=== PATIENT | male | born 1970 | race Caucasian/White ===

== ENCOUNTER 2019-07-18 20:11 | Emergency (ER) | payer MEDICAID, OTHER ==
[~2019-07-18] VITALS: Ht 175.3 cm; Wt 86.2 kg
--- NOTE | 2019-07-18 20:41 | NUR ---
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
--- NOTE | 2019-07-18 21:12 | NUR ---
AT BEDSIDE FOR EVAL.
[2019-07-18] MEDS ORDERED: CEPHALEXIN MONOHYDRATE 500 MG CAPSULE PO ONE ×2 (21:25→21:30)
[2019-07-18] MEDS ORDERED: CHLORDIAZEPOXIDE HCL 25 MG CAPSULE ONE (21:25)
[2019-07-18] MEDS ORDERED: CHLORDIAZEPOXIDE HCL 25 MG CAPSULE PO ONE (21:30)
--- NOTE | 2019-07-18 21:39 | NUR ---
PT REFUSED BLOOD WORK, AWARE.
[2019-07-18 23:15] VITALS: BP 129/82
--- NOTE | 2019-07-18 23:15 | NUR ---
Patient discharged to home in stable condition. Written and verbal after care instructions given. Patient verbalizes understanding of instruction.
== END 2019-07-18 23:16 | disposition home or self-care (01) ==
LOC: ER 20:15
DX: L03.113 Cellulitis of right upper limb (principal); F10.10 Alcohol abuse, uncomplicated; I10 Essential (primary) hypertension; R00.0 Tachycardia, unspecified; Y90.9 Presence of alcohol in blood, level not specified; Z86.19 Personal history of other infectious and parasitic diseases

== ENCOUNTER 2020-02-27 17:00 | Emergency (ER) | payer OTHER ==
[~2020-02-27] VITALS: Ht 175.3 cm; Wt 95.3 kg
[2020-02-27] MEDS ORDERED: ONDANSETRON HCL/PF 4 MG/2 ML VIAL ONE (17:21)
[2020-02-27 17:24] LABS: BASOPHILS # (AUTO) 0.1 /CMM (0.0-0.2); BASOPHILS % (AUTO) 1.4 % (0.0-2.0); EOSINOPHILS % (AUTO) 4.5 % (0.0-6.0); HEMATOCRIT 45 % (39-51); HEMOGLOBIN 15.1 g/dL (13.5-17.5); LYMPHOCYTES # (AUTO) 3.1 /CMM (0.8-4.8); MEAN CORPUSCULAR HGB CONC 34 g/dl (31.0-36.0); MEAN CORPUSCULAR VOLUME 92 fL (80-96); MONOCYTES # (AUTO) 0.3 /CMM (0.1-1.30); MONOCYTES % (AUTO) 4.9 % (2.0-12.0); NEUTROPHILS % (AUTO) 44.2 % (43.0-81.0); PLATELET COUNT (AUTO) 174 /CMM (150-450); RED BLOOD CELL COUNT(AUTO) 4.86 MIL/uL (4.5-6.0); WHITE BLOOD COUNT (AUTO) 6.8 K/uL (4.3-11.0)
--- NOTE | 2020-02-27 17:25 | NUR ---
moises80, from street, nausea vomiting, last drink 2hrs ago, admits on smoking weed. PT AAOX3, VSS. RR EVEN & UNLABORED. DENIES CP, SOB, WEAKNESS AT THIS TIME. PT SEEN & EVAL'D BY DR. HERNANDEZ. MEDICATED ORDERED, PT VEE WELL. WILL CONT TO MONITOR.
[2020-02-27 17:30] LABS: CALCIUM, SERUM 7.8 mg/dL (8.5-10.1); CREATININE 1.1 mg/dL (0.6-1.3); POTASSIUM 3.1 mmol/L (3.5-5.1)
[2020-02-27] MEDS ORDERED: IV NS 0.9% 1,000 ML BAG IV ONE (17:30)
[2020-02-27] MEDS ORDERED: ONDANSETRON HCL/PF 4 MG/2 ML VIAL IVP ONE (17:30)
[2020-02-27 17:36] LABS: ALBUMIN 3.7 g/dL (3.4-5.0); BILIRUBIN,DIRECT 0.1 mg/dL (0.0-0.2); BILIRUBIN,TOTAL 0.5 mg/dL (0.2-1.0); SALICYLATE 1.7 mg/dL (2.8-20.0); TOTAL PROTEIN, SERUM 6.5 g/dL (6.4-8.2)
--- NOTE | 2020-02-27 18:25 | NUR ---
Patient is resting comfortably in bed with eyes closed. Easily aroused. VSS
--- NOTE | 2020-02-27 21:48 | NUR ---
Patient is resting comfortably in bed with eyes closed. Easily aroused. VSS
--- NOTE | 2020-02-27 23:28 | NUR ---
Patient discharged to home in stable condition. Written and verbal after care instructions given. Patient verbalizes understanding of instruction. Signed homeless waiver. VSS. Ambulated with steady gait.
--- NOTE | 2020-02-27 23:28 | NUR ---
IV removed. Catheter intact and site benign. Pressure and 4x4 applied to site. No bleeding noted.
[2020-02-27 23:34] VITALS: BP 124/78
== END 2020-02-27 23:34 | disposition home or self-care (01) ==
LOC: ER 17:01
DX: F10.129 Alcohol abuse with intoxication, unspecified (principal); R11.10 Vomiting, unspecified; I10 Essential (primary) hypertension; Y90.8 Blood alcohol level of 240 mg/100 ml or more
CPT/HCPCS: 36415; 80048; 80076; 80307; 80329; 85025; 96361; 96374; 99283; G0480; J2405; J7030

== ENCOUNTER 2020-11-17 01:44 | Emergency (ER) | payer OTHER ==
[~2020-11-17] VITALS: Ht 175.3 cm; Wt 79.4 kg
--- NOTE | 2020-11-17 01:46 | NUR ---
CALLED FOR TRIAGE, NO ANSWER.
--- NOTE | 2020-11-17 01:50 | NUR ---
CALLED FOR TRIAGE, NO ANSWER.
--- NOTE | 2020-11-17 01:59 | NUR ---
CALLED FOR TRIAGE, NO ANSWER.
--- NOTE | 2020-11-17 03:00 | NUR ---
PT CAME BACK AND WANTS TO BE SEEN. PT STATES "I WAS JUST OUTSIDE SMOKING COZ I KNOW YOU GUYS WONT LET ME GO OUT TO SMOKE LATER."
--- NOTE | 2020-11-17 03:05 | NUR ---
URINE SAMPLE COLLECTED AND SENT TO LAB.
--- NOTE | 2020-11-17 03:09 | NUR ---
LIMITED RADIOLOGY TECHNICIAN AT BEDSIDE FOR BLOOD DRAW.
[2020-11-17] MEDS ORDERED: OLANZAPINE 5 MG TABLET ONE (03:24)
[2020-11-17] MEDS ORDERED: CLONIDINE HCL 0.1 MG TABLET ONE (03:24)
[2020-11-17 03:26] LABS: BASOPHILS % (AUTO) 0.5 % (0.0-2.0); EOSINOPHILS % (AUTO) 2.9 % (0.0-6.0); HEMATOCRIT 47 % (39-51); HEMOGLOBIN 16.2 g/dL (13.5-17.5); LYMPHOCYTES # (AUTO) 2.2 /CMM (0.8-4.8); LYMPHOCYTES % (AUTO) 24.6 % (20.0-44.0); MEAN CORPUSCULAR HGB CONC 35 g/dl (31.0-36.0); MEAN CORPUSCULAR VOLUME 93 fL (80-96); MONOCYTES # (AUTO) 0.7 /CMM (0.1-1.30); MONOCYTES % (AUTO) 7.6 % (2.0-12.0); NEUTROPHILS # (AUTO) 5.7 /CMM (1.8-8.9); NEUTROPHILS % (AUTO) 64.4 % (43.0-81.0); PLATELET COUNT (AUTO) 203 /CMM (150-450); RED BLOOD CELL COUNT(AUTO) 5.05 MIL/uL (4.5-6.0); WHITE BLOOD COUNT (AUTO) 8.9 K/uL (4.3-11.0)
[2020-11-17 03:27] LABS: BILIRUBIN,URINE NEGATIVE (NEGATIVE); COLOR,URINE YELLOW (YELLOW); LEUKOCYTE ESTERASE ,URINE NEGATIVE (NEGATIVE); NITRITE, URINE NEGATIVE (NEGATIVE); PROTEIN,URINE NEGATIVE (NEGATIVE); UGLUCOSE NEGATIVE (NEGATIVE); UROBILINOGEN,URINE 0.2 EU/dL (0.2)
[2020-11-17] MEDS ORDERED: CLONIDINE HCL 0.1 MG TABLET PO ONE (03:30)
[2020-11-17] MEDS ORDERED: OLANZAPINE 5 MG TABLET PO ONE (03:30)
[2020-11-17 03:34] LABS: CALCIUM, SERUM 8.9 mg/dL (8.5-10.1); CARBON DIOXIDE 30 mmol/L (21-32); CHLORIDE 100 mmol/L (98-107); CREATININE 0.9 mg/dL (0.6-1.3); GLUCOSE 118 mg/dL (74-106); POTASSIUM 3.8 mmol/L (3.5-5.1); SODIUM SERUM 139 mmol/L (136-145); UREA NITROGEN, BLOOD 10 mg/dL (7-18)
[2020-11-17 03:38] LABS: BACTERIA,URINE None seen /HPF (None Seen); SQUAMOUS EPITHELIAL CELL,UR Few /HPF (None Seen); URINE AMORPHOUS URATE Rare /HPF (None Seen); WBC,URINE 0-2 /HPF (0-3)
[2020-11-17 03:39] LABS: ALANINE AMINOTRANSFERASE 43 U/L (12-78); ALBUMIN 4.1 g/dL (3.4-5.0); ALCOHOL, BLOOD 175 mg/dL (0-0); ALKALINE PHOSPHATASE 90 U/L (46-116); ASPARTATE AMINOTRANSFERASE 50 U/L (15-37); BILIRUBIN,DIRECT 0.1 mg/dL (0.0-0.2); BILIRUBIN,TOTAL 0.6 mg/dL (0.2-1.0); TOTAL PROTEIN, SERUM 7.7 g/dL (6.4-8.2)
[2020-11-17 03:40] LABS: ACETAMINOPHEN < 2 ug/ml (10-30)
--- NOTE | 2020-11-17 05:55 | NUR ---
CLINICAL AND FACESHEET FAXED TO [facility] INTAKE FOR VOLUNTARY PSYCH ADMISSION.
[2020-11-17 06:28] VITALS: BP 154/99
--- NOTE | 2020-11-17 06:54 | NUR ---
TRANSFER INFO: PT ACCEPTED AT [facility] ACCEPTING MD RENO PT WILL GO TO UNIT 2 PHONE NUMBER FOR REPORT . PLEASE CALL REPORT AFTER 0800
--- NOTE | 2020-11-17 07:05 | NUR ---
[id number] CALLED FOR TRANSPORT. RESERVATION #[id number].
--- NOTE | 2020-11-17 07:24 | NUR ---
RECIEVED A CALL BACK FROM CALL THE CAR. ETA 20-30 MINUTES WITH [facility].
--- NOTE | 2020-11-17 07:38 | NUR ---
REPORT GIVEN TO EMT FOR SSUANNAH
== END 2020-11-17 07:58 ==
LOC: ER 01:46
DX: R45.851 Suicidal ideations (principal); I10 Essential (primary) hypertension; Z86.19 Personal history of other infectious and parasitic diseases; Z20.822 Contact with and (suspected) exposure to COVID-19
CPT/HCPCS: 36415; 80048; 80076; 80299; 80307; 80320 ×2; 81001; 85025; 87426; 99285; C9803; G0480

== ENCOUNTER 2020-12-03 23:42 | Emergency (ER) | payer OTHER ==
[~2020-12-03] VITALS: Ht 175.3 cm; Wt 111.1 kg
--- NOTE | 2020-12-03 23:42 | NUR ---
BIBSELF C/O SORE THROAT. ALSO C/O SUICIDAL IDEATION WITH PLAN TO RUN INTO TRAFFIC. REQUESTING VOLUNTARY ADMISSION TO PSYCH FACILITY, PT TO BED 15, SI PRECAUTIONS STARTED, BELONGINGS KEPT FOR SAFETY, SITTER BY BEDSIDE PER PROTOCOL. CALM AND COOPERATIVE AT THIS TIME, NOT IN ANY DISTRESS.
[2020-12-04 01:33] LABS: BASOPHILS # (AUTO) 0.3 /CMM (0.0-0.2); BASOPHILS % (AUTO) 3.3 % (0.0-2.0); EOSINOPHILS % (AUTO) 0.3 % (0.0-6.0); HEMATOCRIT 44 % (39-51); HEMOGLOBIN 15.1 g/dL (13.5-17.5); LYMPHOCYTES # (AUTO) 1.1 /CMM (0.8-4.8); LYMPHOCYTES % (AUTO) 13.9 % (20.0-44.0); MEAN CORPUSCULAR HGB CONC 34 g/dl (31.0-36.0); MEAN CORPUSCULAR VOLUME 94 fL (80-96); MONOCYTES # (AUTO) 0.3 /CMM (0.1-1.30); MONOCYTES % (AUTO) 4.2 % (2.0-12.0); NEUTROPHILS % (AUTO) 78.3 % (43.0-81.0); PLATELET COUNT (AUTO) 194 /CMM (150-450); RED BLOOD CELL COUNT(AUTO) 4.69 MIL/uL (4.5-6.0); WHITE BLOOD COUNT (AUTO) 7.7 K/uL (4.3-11.0)
[2020-12-04 01:42] LABS: CALCIUM, SERUM 8.6 mg/dL (8.5-10.1); CARBON DIOXIDE 28 mmol/L (21-32); CHLORIDE 103 mmol/L (98-107); GLUCOSE 96 mg/dL (74-106); POTASSIUM 3.2 mmol/L (3.5-5.1); SODIUM SERUM 140 mmol/L (136-145); UREA NITROGEN, BLOOD 6 mg/dL (7-18)
[2020-12-04 01:49] LABS: ALANINE AMINOTRANSFERASE 46 U/L (12-78); ALBUMIN 3.7 g/dL (3.4-5.0); ALCOHOL, BLOOD 103 mg/dL (0-0); ALKALINE PHOSPHATASE 114 U/L (46-116); ASPARTATE AMINOTRANSFERASE 48 U/L (15-37); BILIRUBIN,DIRECT 0.1 mg/dL (0.0-0.2); BILIRUBIN,TOTAL 0.4 mg/dL (0.2-1.0)
[2020-12-04 01:57] LABS: ACETAMINOPHEN < 2 ug/ml (10-30)
[2020-12-04 03:51] LABS: BILIRUBIN,URINE NEGATIVE (NEGATIVE); COLOR,URINE YELLOW (YELLOW); LEUKOCYTE ESTERASE ,URINE NEGATIVE (NEGATIVE); NITRITE, URINE NEGATIVE (NEGATIVE); PH,URINE 6.5 (5.0-8.0); PROTEIN,URINE NEGATIVE (NEGATIVE); UGLUCOSE NEGATIVE (NEGATIVE); UROBILINOGEN,URINE 0.2 EU/dL (0.2)
--- NOTE | 2020-12-04 04:30 | NUR ---
Pt sleeping in [place]. No signs of distress noted. Pt vital signs stable. will cont to monitor pt.
--- NOTE | 2020-12-04 06:00 | NUR ---
Call from [facility] intake. No beds at [place]. Attempting for bed at [facility]
--- NOTE | 2020-12-04 07:22 | NUR ---
TRANSFER INFORMATION: PT ACCEPTED TO [facility] ACCEPTING MD: DR. NOLASCO NUMBER FOR REPORT: [phone] EXT [phone] REQUESTING TO SET UP TRANSPORT/REPORT AFTER 829
--- NOTE | 2020-12-04 10:02 | NUR ---
REPORT GIVEN TO YAKOV YANEZ OF [place] FOR SUSANNAH.
--- NOTE | 2020-12-04 10:03 | NUR ---
CALLED [id number] [phone] WILL CALL US WITH AN ETA AND AMBULANCE.
--- NOTE | 2020-12-04 10:05 | NUR ---
REF NUMBER [id number] [facility]
--- NOTE | 2020-12-04 12:03 | NUR ---
CALLED [id number] FOR UPDATE, NO TRANSPORT OF YET BUT WILL CALL US G[place].
--- NOTE | 2020-12-04 12:09 | NUR ---
[id number] CALLED BACK [facility] WITH ETA OF 45 MINS
--- NOTE | 2020-12-04 12:10 | NUR ---
PT PROVIDED W/ MEAL TRAY.
--- NOTE | 2020-12-04 14:30 | NUR ---
[facility] DID NOT TRANSPORT DUE TO PT BEING HYPERTENSIVE.
[2020-12-04] MEDS ORDERED: CLONIDINE HCL 0.1 MG TABLET ONE (14:36)
--- NOTE | 2020-12-04 14:40 | NUR ---
[facility] CALLED ETA 1530 PER JOSE
[2020-12-04] MEDS ORDERED: CLONIDINE HCL 0.1 MG TABLET PO ONE (15:00)
[2020-12-04 15:48] VITALS: BP 157/104
--- NOTE | 2020-12-04 15:48 | NUR ---
PT TRANSPORTED IN STABLE CONDITION. REPORT GIVEN TO [facility].
== END 2020-12-04 15:50 ==
LOC: ER 23:45
DX: R45.851 Suicidal ideations (principal); I10 Essential (primary) hypertension; J02.9 Acute pharyngitis, unspecified; Z20.822 Contact with and (suspected) exposure to COVID-19; Z86.19 Personal history of other infectious and parasitic diseases; Z59.0 Homelessness
CPT/HCPCS: 36415; 80048; 80076; 80299; 80307; 80320; 81003; 85025; 87426; 99285; C9803; G0480

== ENCOUNTER 2020-12-19 04:21 | Emergency (ER) | payer OTHER ==
[~2020-12-19] VITALS: Ht 172.7 cm; Wt 95.3 kg
[2020-12-19 05:04] LABS: BASOPHILS % (AUTO) 0.7 % (0.0-2.0); EOSINOPHILS % (AUTO) 2.1 % (0.0-6.0); HEMATOCRIT 46 % (39-51); HEMOGLOBIN 15.6 g/dL (13.5-17.5); LYMPHOCYTES # (AUTO) 2.2 /CMM (0.8-4.8); LYMPHOCYTES % (AUTO) 31.8 % (20.0-44.0); MEAN CORPUSCULAR HGB CONC 34 g/dl (31.0-36.0); MEAN CORPUSCULAR VOLUME 96 fL (80-96); MONOCYTES # (AUTO) 0.4 /CMM (0.1-1.30); MONOCYTES % (AUTO) 6.1 % (2.0-12.0); NEUTROPHILS # (AUTO) 4.1 /CMM (1.8-8.9); NEUTROPHILS % (AUTO) 59.3 % (43.0-81.0); PLATELET COUNT (AUTO) 214 /CMM (150-450); RED BLOOD CELL COUNT(AUTO) 4.84 MIL/uL (4.5-6.0); WHITE BLOOD COUNT (AUTO) 6.9 K/uL (4.3-11.0)
[2020-12-19 05:07] LABS: BILIRUBIN,URINE NEGATIVE (NEGATIVE); COLOR,URINE YELLOW (YELLOW); LEUKOCYTE ESTERASE ,URINE NEGATIVE (NEGATIVE); NITRITE, URINE NEGATIVE (NEGATIVE); PROTEIN,URINE TRACE mg/dl (NEGATIVE); UGLUCOSE NEGATIVE (NEGATIVE)
[2020-12-19 05:13] LABS: BACTERIA,URINE None seen /HPF (None Seen); RBC,URINE 0-2 /HPF (0-2); SQUAMOUS EPITHELIAL CELL,UR Few /HPF (None Seen); WBC,URINE 0-2 /HPF (0-3)
[2020-12-19 05:25] LABS: ALANINE AMINOTRANSFERASE 43 U/L (12-78); ALBUMIN 3.8 g/dL (3.4-5.0); ALKALINE PHOSPHATASE 110 U/L (46-116); ASPARTATE AMINOTRANSFERASE 36 U/L (15-37); BILIRUBIN,DIRECT 0.1 mg/dL (0.0-0.2); BILIRUBIN,TOTAL 0.3 mg/dL (0.2-1.0); CALCIUM, SERUM 8.3 mg/dL (8.5-10.1); CARBON DIOXIDE 34 mmol/L (21-32); CHLORIDE 104 mmol/L (98-107); CREATININE 1.1 mg/dL (0.6-1.3); GLUCOSE 100 mg/dL (74-106); POTASSIUM 3.6 mmol/L (3.5-5.1); SODIUM SERUM 145 mmol/L (136-145); TOTAL PROTEIN, SERUM 7.2 g/dL (6.4-8.2); UREA NITROGEN, BLOOD 9 mg/dL (7-18)
[2020-12-19 05:31] LABS: ACETAMINOPHEN < 2 ug/ml (10-30)
[2020-12-19 05:32] LABS: ALCOHOL, BLOOD 161 mg/dL (0-0)
--- NOTE | 2020-12-19 05:48 | NUR ---
covid negative, per laboratory
[2020-12-19 07:10] VITALS: BP 145/77
--- NOTE | 2020-12-19 09:25 | NUR ---
CALLED [facility] ACCEPTED IN [place] UNDER DR. RENO AND DR. WATERS CALL [phone] GEOVANNA RN FOR REPORT.
--- NOTE | 2020-12-19 09:48 | NUR ---
CALLED [id number] [phone] LORETA INGRAM WILL CALL US WITH TRANSPORT INFO. RESERVATION NUMBER IS [id number]
--- NOTE | 2020-12-19 09:55 | NUR ---
Social Service Consult: administrative services officer consult requested for suicidal ideations. Patient is a 50-year-old, white male. SW met with the patient in the waiting room of the emergency department. Patient is alert and oriented x4. Patient observed to be disheveled and malodorous. Patient is calm. Patient came to the ED on 12/19/2020 for suicidal ideations, with a plan to run into traffic. Per ED physician, patient has a history of depression and suicidal ideations. Patient has current thoughts of suicide with a plan. Patient denies HI. Patient stated that he is homeless and has been for years. Per toxicology report, patient is positive for Opiates and Amphetamine. Patient stated that he has been using Opiates and Amphetamine for years but did not want to provide further information on the frequency of use. Patient stated that he has inadequate support. Patient stated he has no source of income. Patient denies any history of mental illness. Patient denies any current hallucinations and delusions. SW discussed homeless resources with the patient and asked if he is familiar with the resources. Patient stated that he is familiar with the resources and accepted the homeless resources packet. Per ED physicians note, patient is willing to go to [facility] for inpatient psychiatric hospitalization. SW confirmed this discharge plan with the patient and patient expressed agreement with this plan. ED nursing had already faxed clinicals to [facility], and patient has been accepted at [facility] ([address] [place] [address]; [phone]). Patient signed the homeless waiver. SW filed the waiver in the patients chart. PLAN: Patient has been accepted to [facility] ([address] [place] [address]; [phone]) and is waiting to be transferred. No further SS interventions needed at this time, however social psychologist will remain available, as needed. Homeless resources and referrals included: Year-round shelters: [facility] [address] [place], [place] [id number] ; [facility] [address] [place] [address]; [facility] [address] [facility] [address] Hygiene: [facility]: [address] [place] ; [facility] [address] [facility] [place] ; [facility] [address], [place] . Food Resources: [place] [facility] at [facility]- [address] [place]; Meet Each Need with [facility] ([facility]) [address] [facility] [address] [place]; [facility] [address] [facility]; [facility] [address] [facility]. Mental Health resources provided: [facility] [address] [place] [address] ; [facility] [address] [facility] [address], [place], [place] [id number] ; [facility] [address], [place] [id number] ; [facility] [address] [place], [place] [id number] Healthcare Clinics: [facility] [address], [address] [place]. [place] ; [facility] [address] [facility] [address] [place] [address]; [facility] [place] [address] [place] [address] [phone]
--- NOTE | 2020-12-19 10:00 | NUR ---
report given to Madelyn NAGY at [facility] for kal
--- NOTE | 2020-12-19 10:05 | NUR ---
PT ELOPED FROM ED. WAS SUPPOSED TO BE TRANSFERED TO [facility] FOR VOLUNTARY PSYC ADMISSION.
== END 2020-12-19 11:16 | disposition left against medical advice (07) ==
LOC: ER 04:22
DX: R45.851 Suicidal ideations (principal); Z86.19 Personal history of other infectious and parasitic diseases; I10 Essential (primary) hypertension
CPT/HCPCS: 36415; 80048; 80076; 80299; 80307; 80320; 81001; 85025; 87426; 99285; C9803; G0480

== ENCOUNTER 2020-12-29 03:19 | Emergency (ER) | payer OTHER ==
[~2020-12-29] VITALS: Ht 177.8 cm; Wt 95.3 kg
[2020-12-29 03:19] VITALS: BP 164/101
--- NOTE | 2020-12-29 03:20 | NUR ---
TO ER BED C/O SI WITH PLAN TO RUN INTO TRAFFIC. PT AGATA PULIDO. PT AAOX4 NO ACUTE DISRTESS NOTED, RESP EVEN AND UNLABORED. PT CALM AND COOPERATIVE AT THIS TIME. PLACE PT ON A HOSPITAL GOWN, ALL BELONGINGS REMOVED AND PLACED IN A LOCKED HOSPITAL LOCKER. ER MD AT BEDSIDE TO EVAL PT WITH ORDERS RECEIVED.
[2020-12-29 04:51] LABS: BASOPHILS % (AUTO) 0.5 % (0.0-2.0); EOSINOPHILS % (AUTO) 0.3 % (0.0-6.0); HEMATOCRIT 52 % (39-51); LYMPHOCYTES # (AUTO) 1.9 /CMM (0.8-4.8); LYMPHOCYTES % (AUTO) 21.9 % (20.0-44.0); MEAN CORPUSCULAR HGB CONC 35 g/dl (31.0-36.0); MEAN CORPUSCULAR VOLUME 94 fL (80-96); MONOCYTES # (AUTO) 0.5 /CMM (0.1-1.30); MONOCYTES % (AUTO) 6.3 % (2.0-12.0); NEUTROPHILS # (AUTO) 6.1 /CMM (1.8-8.9); RED BLOOD CELL COUNT(AUTO) 5.53 MIL/uL (4.5-6.0); WHITE BLOOD COUNT (AUTO) 8.6 K/uL (4.3-11.0)
[2020-12-29 05:06] LABS: CALCIUM, SERUM 9.1 mg/dL (8.5-10.1); CARBON DIOXIDE 26 mmol/L (21-32); CHLORIDE 104 mmol/L (98-107); GLUCOSE 91 mg/dL (74-106); SODIUM SERUM 142 mmol/L (136-145); UREA NITROGEN, BLOOD 7 mg/dL (7-18)
[2020-12-29 05:09] LABS: BILIRUBIN,URINE NEGATIVE (NEGATIVE); LEUKOCYTE ESTERASE ,URINE NEGATIVE (NEGATIVE); NITRITE, URINE NEGATIVE (NEGATIVE); PH,URINE 5.5 (5.0-8.0); PROTEIN,URINE NEGATIVE (NEGATIVE); UGLUCOSE NEGATIVE (NEGATIVE); UROBILINOGEN,URINE 0.2 EU/dL (0.2)
[2020-12-29 05:10] LABS: COLOR,URINE STRAW (YELLOW)
[2020-12-29 05:13] LABS: ALANINE AMINOTRANSFERASE 60 U/L (12-78); ALBUMIN 4.8 g/dL (3.4-5.0); ALCOHOL, BLOOD 147 mg/dL (0-0); ALKALINE PHOSPHATASE 99 U/L (46-116); ASPARTATE AMINOTRANSFERASE 37 U/L (15-37); BILIRUBIN,DIRECT 0.1 mg/dL (0.0-0.2); BILIRUBIN,TOTAL 0.5 mg/dL (0.2-1.0); TOTAL PROTEIN, SERUM 8.6 g/dL (6.4-8.2)
[2020-12-29 05:15] LABS: PLATELET COUNT (AUTO) 210 /CMM (150-450)
[2020-12-29 05:20] LABS: ACETAMINOPHEN < 2 ug/ml (10-30)
--- NOTE | 2020-12-29 05:26 | NUR ---
CALL FROM LAB. RAPID COVID NEGATIVE.
--- NOTE | 2020-12-29 05:47 | NUR ---
CLINICAL AND FACESHEET FAXED TO [facility] INTAKE FOR VOLUNTARY PSYCH ADMISSION.
--- NOTE | 2020-12-29 06:42 | NUR ---
Pt states he's no longer suicidal and would like to leave the ER. Dr mike notified. Pt eloped from er.
== END 2020-12-29 06:55 | disposition left against medical advice (07) ==
LOC: ER 03:19
DX: R45.851 Suicidal ideations (principal); F10.129 Alcohol abuse with intoxication, unspecified; F15.10 Other stimulant abuse, uncomplicated; Y90.6 Blood alcohol level of 120-199 mg/100 ml; Z20.822 Contact with and (suspected) exposure to COVID-19; I10 Essential (primary) hypertension; Z86.19 Personal history of other infectious and parasitic diseases
CPT/HCPCS: 36415; 80048; 80076; 80299; 80307; 80320; 81003; 85025; 87426; 99285; C9803; G0480

== ENCOUNTER 2020-12-29 22:48 | Emergency (ER) | payer OTHER ==
--- NOTE | 2020-12-29 23:55 | NUR ---
called pt in wr. pt states "i want to sleep right now." no acute distress noted. pt appears comfortable.
--- NOTE | 2020-12-30 00:20 | NUR ---
CALLED PT BE TRIAGED. PT STATES HE IS LOOKING FOR PLACE TO SLEEP AND DOES NOT WISH TO BE SEEN. RESOURCES PROVIDED TO PATIENT. MD AWARE
== END 2020-12-30 00:21 | disposition left against medical advice (07) ==
LOC: ER 22:51
DX: F29 Unspecified psychosis not due to a substance or known physiological condition (principal); I10 Essential (primary) hypertension; F10.10 Alcohol abuse, uncomplicated; Y90.9 Presence of alcohol in blood, level not specified; Z53.21 Procedure and treatment not carried out due to patient leaving prior to being seen by health care provider; Z86.19 Personal history of other infectious and parasitic diseases

== ENCOUNTER 2021-01-14 04:01 | Emergency (ER) | payer OTHER ==
[~2021-01-14] VITALS: Ht 170.2 cm; Wt 86.2 kg
--- NOTE | 2021-01-14 04:24 | NUR ---
PT TO ER BED 15 C/O SIPLANS TO RUN INTO TRAFFIC. PATIENT REEKS OF ALCOHOL. PATIENT IS AAOX4. NO SOB. BREATHING EVENLY AND UNLABORED ON ROOOM AIR. CONNECTED TO THE MONITOR. PATIENT'S BELONGINGS ARE REMOVED AND PLACED INTO A LOCKER. PATIENT IS IN A CLEAN GOWN. SITTER AT BEDSIDE.
[2021-01-14] MEDS ORDERED: LIDOCAINE 2% JEL UROJET 10 ML MM ONE (04:37)
--- NOTE | 2021-01-14 04:44 | NUR ---
BLOOD AND URINE COLLECTED AND SENT TO THE LAB
[2021-01-14 05:02] LABS: CALCIUM, SERUM 7.6 mg/dL (8.5-10.1); CARBON DIOXIDE 30 mmol/L (21-32); CHLORIDE 106 mmol/L (98-107); GLUCOSE 110 mg/dL (74-106); POTASSIUM 3.3 mmol/L (3.5-5.1); SODIUM SERUM 146 mmol/L (136-145); UREA NITROGEN, BLOOD 7 mg/dL (7-18)
[2021-01-14 05:06] LABS: BASOPHILS % (AUTO) 0.7 % (0.0-2.0); HEMATOCRIT 42 % (39-51); HEMOGLOBIN 14.5 g/dL (13.5-17.5); LYMPHOCYTES # (AUTO) 2.1 /CMM (0.8-4.8); LYMPHOCYTES % (AUTO) 35.2 % (20.0-44.0); MEAN CORPUSCULAR HGB CONC 34 g/dl (31.0-36.0); MEAN CORPUSCULAR VOLUME 95 fL (80-96); MONOCYTES # (AUTO) 0.3 /CMM (0.1-1.30); MONOCYTES % (AUTO) 5.6 % (2.0-12.0); NEUTROPHILS # (AUTO) 3.4 /CMM (1.8-8.9); NEUTROPHILS % (AUTO) 56.5 % (43.0-81.0); PLATELET COUNT (AUTO) 207 /CMM (150-450); RED BLOOD CELL COUNT(AUTO) 4.45 MIL/uL (4.5-6.0); WHITE BLOOD COUNT (AUTO) 6.1 K/uL (4.3-11.0)
[2021-01-14 05:16] LABS: BILIRUBIN,URINE SMALL (NEGATIVE); COLOR,URINE YELLOW (YELLOW); LEUKOCYTE ESTERASE ,URINE NEGATIVE (NEGATIVE); NITRITE, URINE NEGATIVE (NEGATIVE); PROTEIN,URINE 30 mg/dl (NEGATIVE); UGLUCOSE NEGATIVE (NEGATIVE); UROBILINOGEN,URINE 0.2 EU/dL (0.2)
[2021-01-14 05:17] LABS: ALANINE AMINOTRANSFERASE 41 U/L (12-78); ALBUMIN 3.4 g/dL (3.4-5.0); ALCOHOL, BLOOD 238 mg/dL (0-0); ALKALINE PHOSPHATASE 106 U/L (46-116); ASPARTATE AMINOTRANSFERASE 51 U/L (15-37); BILIRUBIN,DIRECT 0.1 mg/dL (0.0-0.2); BILIRUBIN,TOTAL 0.3 mg/dL (0.2-1.0); TOTAL PROTEIN, SERUM 6.8 g/dL (6.4-8.2)
[2021-01-14 06:18] LABS: RBC,URINE NONE SEEN /HPF (0-2)
[2021-01-14 06:19] LABS: BACTERIA,URINE None seen /HPF (None Seen); SQUAMOUS EPITHELIAL CELL,UR Few /HPF (None Seen); WBC,URINE NONE SEEN /HPF (0-3)
[2021-01-14 07:27] LABS: ACETAMINOPHEN < 2 ug/ml (10-30)
--- NOTE | 2021-01-14 15:00 | NUR ---
CLINICALS FAXED TO [facility].
--- NOTE | 2021-01-14 17:26 | NUR ---
CALLED [facility] TO FOLLOW UP, PER INTAKE, CLINICALS STILL BEING REVIEWED.
--- NOTE | 2021-01-15 06:42 | NUR ---
PT DENIES SI AND HI. REQUESTED TO LEAVE. ER AWARE. VSS. PT BELONINGS GIVEN BACK TO THE PT.
[2021-01-15 06:43] VITALS: BP 129/86
== END 2021-01-15 07:24 | disposition home or self-care (01) ==
LOC: ER 04:04
DX: F32.9 Major depressive disorder, single episode, unspecified (principal); R45.851 Suicidal ideations; F10.229 Alcohol dependence with intoxication, unspecified; Y90.7 Blood alcohol level of 200-239 mg/100 ml; R45.850 Homicidal ideations; Z86.19 Personal history of other infectious and parasitic diseases; I10 Essential (primary) hypertension; Z20.822 Contact with and (suspected) exposure to COVID-19
CPT/HCPCS: 36415; 80048; 80076; 80299; 80307; 80320 ×2; 81001; 85025; 87426; 99285; C9803; J3490; G0480

== ENCOUNTER 2021-11-06 02:45 | Emergency (ER) | payer OTHER ==
[~2021-11-06] VITALS: Ht 177.8 cm; Wt 94.8 kg
--- NOTE | 2021-11-06 04:01 | NUR ---
CATHETERIZATION LABORATORY TECHNICIAN AT PT'S BEDSIDE
--- NOTE | 2021-11-06 04:04 | NUR ---
BIBS FOR C/O SI. REQUESTING COLUNTARY PSYCH ADMISSION TO [facility]. PT SEEMS INTOXICATED BUT LAERT AND RESPONSIVE TO QUESTIONS. AMBULATORY WITH STEADY GAITS TO THE BATHROOM. URINE SAMPLE OBTAINED AND PLACED PT ON SI PRECAUTION. WILL CONT TO MONITOR ,
[2021-11-06 04:11] LABS: BASOPHILS # (AUTO) 0.1 K/uL (0.0-0.2); BASOPHILS % (AUTO) 0.6 % (0.0-2.0); EOSINOPHILS % (AUTO) 1.5 % (0.0-6.0); HEMATOCRIT 48 % (39-51); HEMOGLOBIN 16.4 g/dL (13.5-17.5); LYMPHOCYTES # (AUTO) 2.6 K/uL (0.8-4.8); LYMPHOCYTES % (AUTO) 28.6 % (20.0-44.0); MEAN CORPUSCULAR HGB CONC 34 g/dl (31.0-36.0); MEAN CORPUSCULAR VOLUME 90 fL (80-96); MONOCYTES # (AUTO) 0.5 K/uL (0.1-1.30); MONOCYTES % (AUTO) 5.7 % (2.0-12.0); NEUTROPHILS # (AUTO) 5.9 K/uL (1.8-8.9); NEUTROPHILS % (AUTO) 63.6 % (43.0-81.0); PLATELET COUNT (AUTO) 241 K/uL (150-450); RED BLOOD CELL COUNT(AUTO) 5.28 MIL/uL (4.5-6.0); WHITE BLOOD COUNT (AUTO) 9.2 K/uL (4.3-11.0)
[2021-11-06 04:16] LABS: BILIRUBIN,URINE NEGATIVE (NEGATIVE); COLOR,URINE YELLOW (YELLOW); LEUKOCYTE ESTERASE ,URINE NEGATIVE (NEGATIVE); NITRITE, URINE NEGATIVE (NEGATIVE); PROTEIN,URINE NEGATIVE (NEGATIVE); UGLUCOSE NEGATIVE (NEGATIVE); UROBILINOGEN,URINE 0.2 EU/dL (0.2)
[2021-11-06 04:25] LABS: CALCIUM, SERUM 9.1 mg/dL (8.5-10.1); CARBON DIOXIDE 32 mmol/L (21-32); CHLORIDE 101 mmol/L (98-107); CREATININE 0.8 mg/dL (0.6-1.3); GLUCOSE 116 mg/dL (74-106); POTASSIUM 3.5 mmol/L (3.5-5.1); SODIUM SERUM 143 mmol/L (136-145); UREA NITROGEN, BLOOD 9 mg/dL (7-18)
[2021-11-06 04:29] LABS: BACTERIA,URINE None seen /HPF (None Seen); RBC,URINE 0-2 /HPF (0-2); SQUAMOUS EPITHELIAL CELL,UR Few /HPF (None Seen); WBC,URINE 0-2 /HPF (0-3)
[2021-11-06 04:33] LABS: ALANINE AMINOTRANSFERASE 68 U/L (12-78); ALBUMIN 4.5 g/dL (3.4-5.0); ALCOHOL, BLOOD 276 mg/dL (0-0); ALKALINE PHOSPHATASE 142 U/L (46-116); ASPARTATE AMINOTRANSFERASE 150 U/L (15-37); BILIRUBIN,DIRECT 0.1 mg/dL (0.0-0.2); BILIRUBIN,TOTAL 0.6 mg/dL (0.2-1.0)
[2021-11-06 04:44] LABS: ACETAMINOPHEN < 2 ug/ml (10-30)
--- NOTE | 2021-11-06 12:09 | NUR ---
FAXED CLINICALS TO [facility]
--- NOTE | 2021-11-06 22:02 | NUR ---
FAXED CLINIJCALS AND FACE SHEET W/ UPDATED ALCOHOL LEVEL TO [facility]
[2021-11-07 00:13] VITALS: BP 155/93
--- NOTE | 2021-11-07 01:30 | NUR ---
ACCEPTED AT [facility] UNDER THE CARE OF DR. BALLARD. CALL [phone] FOR REPORT.
--- NOTE | 2021-11-07 01:33 | NUR ---
REPORT GIVEN TO AYKOV CONNELLY SUP FOR SUSANNAH AT [facility]
--- NOTE | 2021-11-07 01:34 | NUR ---
CALLED [facility] TO REQUEST TRANSPORT
--- NOTE | 2021-11-07 01:52 | NUR ---
[facility] ETA:15 MIN
--- NOTE | 2021-11-07 02:04 | NUR ---
[facility] AT BED SIDE TO THERAPY ADMINISTRATIVE ASSISTANT THE PT
--- NOTE | 2021-11-07 02:13 | NUR ---
[facility]
== END 2021-11-07 02:15 ==
LOC: ER 02:45
DX: R45.851 Suicidal ideations (principal); F10.129 Alcohol abuse with intoxication, unspecified; Y90.8 Blood alcohol level of 240 mg/100 ml or more; I10 Essential (primary) hypertension; Z59.00 Homelessness unspecified; Z86.19 Personal history of other infectious and parasitic diseases
CPT/HCPCS: 36415; 80048; 80076; 80143; 80307; 80320 ×3; 81001; 85025; 87426; 99285; C9803; G0480

== ENCOUNTER 2021-11-08 16:59 | Emergency (ER) | payer OTHER ==
[~2021-11-08] VITALS: Ht 175.3 cm; Wt 95.3 kg
--- NOTE | 2021-11-08 16:59 | NUR ---
PT BIBRA 39 FROM [facility] C/O SHARP CHEST PAIN X 3 DAY RADIATES TO R ARM. PT IS AAOX4, NOT IN RESPIRATORY DISTRESS, HOOKED TO [place]. KEPT RESTED AND COMFORTABLE. WILL CONTINUE TO MONITOR.
--- NOTE | 2021-11-08 17:39 | NUR ---
AUNDREA HERNANDEZ AT BEDSIDE FOR BLOOD DRAW.
[2021-11-08 18:17] LABS: BASOPHILS % (AUTO) 0.5 % (0.0-2.0); EOSINOPHILS % (AUTO) 2.2 % (0.0-6.0); HEMATOCRIT 42 % (39-51); HEMOGLOBIN 14.1 g/dL (13.5-17.5); LYMPHOCYTES # (AUTO) 1.4 K/uL (0.8-4.8); LYMPHOCYTES % (AUTO) 26.4 % (20.0-44.0); MEAN CORPUSCULAR HGB CONC 34 g/dl (31.0-36.0); MEAN CORPUSCULAR VOLUME 91 fL (80-96); MONOCYTES # (AUTO) 0.2 K/uL (0.1-1.30); NEUTROPHILS # (AUTO) 3.6 K/uL (1.8-8.9); NEUTROPHILS % (AUTO) 66.9 % (43.0-81.0); PLATELET COUNT (AUTO) 184 K/uL (150-450); RED BLOOD CELL COUNT(AUTO) 4.56 MIL/uL (4.5-6.0); WHITE BLOOD COUNT (AUTO) 5.4 K/uL (4.3-11.0)
[2021-11-08 18:54] LABS: CALCIUM, SERUM 8.8 mg/dL (8.5-10.1); CARBON DIOXIDE 31 mmol/L (21-32); CHLORIDE 102 mmol/L (98-107); CREATININE 0.8 mg/dL (0.6-1.3); GLUCOSE 93 mg/dL (74-106); POTASSIUM 3.4 mmol/L (3.5-5.1); SODIUM SERUM 141 mmol/L (136-145); UREA NITROGEN, BLOOD 7 mg/dL (7-18)
--- NOTE | 2021-11-08 19:54 | NUR ---
CLINICALS FAXED TO INTAKE TO ACCEPT PT BACK
--- NOTE | 2021-11-08 23:20 | NUR ---
[facility]: [phone] BALLARD
--- NOTE | 2021-11-08 23:24 | NUR ---
REPORT GIVEN TO MARICEL PALACIOS FOR SUSANNAH. ART FROM [facility] WILL CALL TO NOTIFY TRANSPORTATION ETA
--- NOTE | 2021-11-08 23:45 | NUR ---
F/U WITH [facility] & SPOKE TO JANUARY. TRANSPORTION NOT SET UP YET & WILL CALL BACK FOR ETA
[2021-11-09 01:15] VITALS: BP 110/70
--- NOTE | 2021-11-09 01:15 | NUR ---
PATIENTS BEING TRANSFERRED TO [facility] BY
== END 2021-11-09 01:20 ==
LOC: ER 17:05
DX: R07.89 Other chest pain (principal); I10 Essential (primary) hypertension; F17.200 Nicotine dependence, unspecified, uncomplicated; Z59.00 Homelessness unspecified
CPT/HCPCS: 36415; 71045-TC; 80048-TC; 84484-TC; 85025-TC

== ENCOUNTER 2021-11-18 00:12 | Emergency (ER) | payer OTHER ==
[~2021-11-18] VITALS: Ht 177.8 cm; Wt 95.3 kg
--- NOTE | 2021-11-18 01:06 | NUR ---
BIBS C/O S/I WITH PLAN TO RUN INTO TRAFFIC. SEEKING VOLUNTARY ADMISSION TO [facility]. PATIENT ALERT AND ORIENTED X3. AMBULATORY WITH NON LABORED BREATHING.
--- NOTE | 2021-11-18 01:30 | NUR ---
PT UNABLE TO GIVE URINE.
--- NOTE | 2021-11-18 01:33 | NUR ---
COVID SWAB DONE AND SENT TO LAB
[2021-11-18 01:40] LABS: BASOPHILS # (AUTO) 0.1 K/uL (0.0-0.2); BASOPHILS % (AUTO) 0.6 % (0.0-2.0); EOSINOPHILS % (AUTO) 0.5 % (0.0-6.0); HEMATOCRIT 48 % (39-51); HEMOGLOBIN 16.3 g/dL (13.5-17.5); LYMPHOCYTES # (AUTO) 2.1 K/uL (0.8-4.8); LYMPHOCYTES % (AUTO) 24.6 % (20.0-44.0); MEAN CORPUSCULAR HGB CONC 34 g/dl (31.0-36.0); MEAN CORPUSCULAR VOLUME 91 fL (80-96); MONOCYTES # (AUTO) 0.7 K/uL (0.1-1.30); MONOCYTES % (AUTO) 7.5 % (2.0-12.0); NEUTROPHILS # (AUTO) 5.8 K/uL (1.8-8.9); NEUTROPHILS % (AUTO) 66.8 % (43.0-81.0); PLATELET COUNT (AUTO) 230 K/uL (150-450); WHITE BLOOD COUNT (AUTO) 8.7 K/uL (4.3-11.0)
--- NOTE | 2021-11-18 01:45 | NUR ---
BLOOD COLLECTED BY ER MENTAL RETARDATION AIDE.
[2021-11-18 01:47] LABS: CALCIUM, SERUM 8.6 mg/dL (8.5-10.1); CARBON DIOXIDE 29 mmol/L (21-32); CHLORIDE 95 mmol/L (98-107); CREATININE 0.8 mg/dL (0.6-1.3); GLUCOSE 95 mg/dL (74-106); POTASSIUM 3.7 mmol/L (3.5-5.1); SODIUM SERUM 134 mmol/L (136-145); UREA NITROGEN, BLOOD 8 mg/dL (7-18)
[2021-11-18 01:53] LABS: ALANINE AMINOTRANSFERASE 55 U/L (12-78); ALBUMIN 4.5 g/dL (3.4-5.0); ALCOHOL, BLOOD 182 mg/dL (0-0); ALKALINE PHOSPHATASE 162 U/L (46-116); ASPARTATE AMINOTRANSFERASE 73 U/L (15-37); BILIRUBIN,DIRECT 0.2 mg/dL (0.0-0.2); BILIRUBIN,TOTAL 1.5 mg/dL (0.2-1.0); TOTAL PROTEIN, SERUM 8.1 g/dL (6.4-8.2)
[2021-11-18 02:00] LABS: ACETAMINOPHEN < 0 ug/ml (10-30)
--- NOTE | 2021-11-18 02:00 | NUR ---
PATIENT UNABLE TO GIVE URINE AT THIS TIME.
--- NOTE | 2021-11-18 03:39 | NUR ---
PATIENT STATES HE IS UNABLE TO GIVE URINE.
[2021-11-18 04:18] LABS: BILIRUBIN,URINE NEGATIVE (NEGATIVE); COLOR,URINE YELLOW (YELLOW); LEUKOCYTE ESTERASE ,URINE NEGATIVE (NEGATIVE); NITRITE, URINE NEGATIVE (NEGATIVE); PH,URINE 6.5 (5.0-8.0); PROTEIN,URINE TRACE mg/dl (NEGATIVE); UGLUCOSE NEGATIVE (NEGATIVE)
[2021-11-18 04:50] LABS: BACTERIA,URINE None seen /HPF (None Seen); MUCUS,URINE Few /LPF (None Seen); RBC,URINE 0-2 /HPF (0-2); SQUAMOUS EPITHELIAL CELL,UR Few /HPF (None Seen); WBC,URINE 0-2 /HPF (0-3)
--- NOTE | 2021-11-18 06:18 | NUR ---
PATIENT STATES HE IS "NO LONGER SUICIDAL, NO LONGER WANTS TO GO TO [facility]." STATES "HE FEELS BETTER NOW". MD NOTIFIED AND AWARE. PATIENT DISCHARGED IN STABLE CONDITION.
[2021-11-18 06:20] VITALS: BP 148/98
== END 2021-11-18 06:20 | disposition home or self-care (01) ==
LOC: ER 00:13
DX: R45.851 Suicidal ideations (principal); F19.10 Other psychoactive substance abuse, uncomplicated; Z59.01 Sheltered homelessness; Z20.822 Contact with and (suspected) exposure to COVID-19; F15.10 Other stimulant abuse, uncomplicated; Z53.29 Procedure and treatment not carried out because of patient's decision for other reasons; F17.200 Nicotine dependence, unspecified, uncomplicated; Z86.19 Personal history of other infectious and parasitic diseases; I10 Essential (primary) hypertension
CPT/HCPCS: 36415; 80048; 80076; 80143; 80307; 80320; 81001; 85025; 87426; 99285; C9803; G0480